=== PATIENT | female | born 1965 | race Caucasian/White ===

== ENCOUNTER 2017-02-07 07:58 | Emergency (ER) | payer SELFPAY ==
[~2017-02-07] VITALS: Ht 182.9 cm; Wt 92.9 kg
[~2017-02-07 07:58] MED LIST: CITA40TA12 PO; CLON1TAB3 PO; LEVO150T PO; LSN20 PO; ULT50X PO; VALA1TAB2 PO
[2017-02-07 08:03] VITALS: Ht 182.9 cm; Wt 92.9 kg
--- NOTE | 2017-02-07 08:07 | EMERGENCY ROOM VISIT NOTE ---
ED Visit Note First contact with patient: 08:03 CHIEF COMPLAINT: Toothache HISTORY OF PRESENT ILLNESS: This 51-year-old female patient presented to the emergency department [] with a progressive toothache for past []. The patient believes it is coming from []. The pain is now steady and severe and radiates to the face. The patient [] a dentist appointment set up []. They rate their pain a []/10 and the ibuprofen and Tylenol they have been taking has not relieved the pain. Denies facial swelling or fever. The patient denies any discharge from the mouth. REVIEW OF SYSTEMS: A 6 system review of systems was completed with positives and pertinent negatives listed in the HPI. ALLERGIES: [] MEDICATIONS: [] PMH: [] SOCIAL HISTORY: [] PHYSICAL EXAM: Vitals are noted on the nurse's note and reviewed by myself. Vital signs stable. Temperature []C orally. GENERAL: [], in no acute distress , nondiaphoretic, well-developed well-nourished. Mouth: The [] tooth is very carious and the gum is swollen and tender around it, without any discharge or signs of an abscess. The remainder of the pharynx and tonsils are without erythema, edema, or exudate. The airway is patent. There is no facial swelling , cervical or submandibular lymphadenopathy. The patient appears uncomfortable and in pain. The patient has overall [] dental hygiene. EARS: External auditory canals clear, tympanic membranes pearly andrade without erythema or effusion bilaterally. ED COURSE: [] DIAGNOSIS: Odontalgia DISCHARGE INSTRUCTIONS & TREATMENT: Percocet every 6 hours if needed for pain. Amoxicillin 500 mg t.i.d. x 10 days for infection. See a dentist as soon as possible for definitive care. Return sooner if shortness of breath, discharge, or change in vision and hearing occur. Problem List Medical Problems: (1) Anxiety Status: Chronic (2) Depression Status: Chronic (3) Herpes zoster Status: Chronic (4) HTN (hypertension) Status: Chronic (5) Hypothyroidism Status: Chronic (6) Mitral valve prolapse Status: Chronic (7) Mitral valve regurgitation Status: Chronic (8) Restless leg syndrome Status: Chronic Surgical Problems: (1) History of endometrial ablation Status: Resolved (2) History of tubal ligation Status: Resolved Social History Problems: (1) Tobacco use Status: Chronic Current/Historical Medications Scheduled Clindamycin Hcl (Cleocin), 300 MG PO TID Ibuprofen (Advil), 800 MG PO TID Levothyroxine Sodium (Synthroid), 150 MCG PO DAILY Lisinopril (Lisinopril), 20 MG PO DAILY Allergies Coded Allergies: No Known Allergies (Unverified , 08/11/12) Vital Signs Date Time Temp Pulse Resp B/P (MAP) Pulse Ox O2 Delivery O2 Flow Rate FiO2 02/07/17 08:03 36.6 82 18 182/119 99 Room Air Laboratory Results Test 02/07/17 08:19 Departure Information Referrals No Doctor, Assigned (PCP) Patient Instructions [facility]
[2017-02-07] MEDS ORDERED: CLIN150C PO (08:12)
[2017-02-07] MEDS ORDERED: IBUP-1050 PO (08:12)
[2017-02-07] MEDS ORDERED: FENTANYL CITRATE INJ 50 MCG/1 ML 2 ML VIAL IV STA (08:19)
[2017-02-07] MEDS ORDERED: ACETAMINOPHEN IV 100 ML IV STA (08:19)
[2017-02-07] MEDS ORDERED: SODIUM CHLORIDE 0.9% 1000ML 1,000 ML IV STA (08:19)
--- NOTE | 2017-02-07 08:36 | EMERGENCY ROOM VISIT NOTE ---
History First contact with patient: 08:03 Chief Complaint: DENTAL PAIN Stated Complaint: SWELLING ON R JAW Nursing Triage Summary: they started a root canal procedure on thursday. currently taking antibiotics. woke up this morning swelling is greater. "I am having problems swallowing now" History of Present Illness The patient is a 51 year old female who presents to the Emergency Room with complaints of right facial swelling and pain that started 2 days ago. Patient states that she had a dental infection that was evaluated by her dentist, on Thursday she started a root canal and placed antibiotics in her gums, then on Thursday she went back for a washout and completion of the root canal. On she began to complain of increased pain so she was placed on amoxicillin. Thursday she began to develop swelling and increasing pain, so her dentist switched her from amoxicillin to clindamycin, which the patient states she has been taking. She states last night that she was hardly able to sleep because of pain, and now she is having some difficulty swallowing due to pain and swelling. She denies any difficulty breathing or throat swelling, fevers or chills, chest pain, nausea or vomiting, rash. Review of Systems A complete 10 point review of systems was reviewed with the patient with pertinent positives and negatives as per history of present illness. All else were negative. Past Medical/Surgical History Medical Problems: (1) Anxiety (2) Depression (3) Herpes zoster (4) HTN (hypertension) (5) Hypothyroidism (6) Mitral valve prolapse (7) Mitral valve regurgitation (8) Restless leg syndrome Surgical Problems: (1) History of endometrial ablation (2) History of tubal ligation Social History Problems: (1) Tobacco use Family History No pertinent family history Social History Smoking Status: Current Every Day Smoker Marital Status: Occupation Status: employed Current/Historical Medications Scheduled Clindamycin Hcl (Cleocin), 300 MG PO TID Clindamycin Hcl (Cleocin), 1 CAP PO TID Ibuprofen (Advil), 800 MG PO TID Levothyroxine Sodium (Synthroid), 150 MCG PO DAILY Lisinopril (Lisinopril), 20 MG PO DAILY Scheduled PRN Oxycodone Ir (Roxicodone Ir), 5 MG PO Q4H PRN for Severe Pain Physical Exam Vital Signs Date Time Temp Pulse Resp B/P (MAP) Pulse Ox O2 Delivery O2 Flow Rate FiO2 02/07/17 12:38 36.6 65 20 155/81 99 02/07/17 12:36 65 20 155/81 99 Room Air 02/07/17 09:59 64 18 178/99 99 Room Air 02/07/17 08:03 36.6 82 18 182/119 99 Room Air Physical Exam CONSTITUTIONAL: No acute distress, but appears uncomfortable. Mildly dehydrated. Alert and oriented X 4 with normal affect. HEENT: Normocephalic, atraumatic. Pupils equal, round and reactive to light, EOMI. TMs normal. Pharynx normal. Tacky mucous membranes. Moderate right jaw swelling that extends into the right lips and right upper neck, exquisitely tender to palpation. No gingivitis, periapical abscess, or drainage noted within the mouth. No woody edema of the mouth floor. NECK: Supple, full active range of motion without discomfort. RESPIRATORY: Clear to auscultation bilaterally with no wheezing, crackles, rhonchi or stridor. Equal expansion bilaterally. CARDIOVASCULAR: Regular rate and rhythm with no murmurs, rubs or gallops. Normal peripheral perfusion. No edema. GASTROINTESTINAL: Soft, nontender, nondistended. Bowel sounds present in all quadrants. MUSCULOSKELETAL: Full range of motion of all joints without discomfort. INTEGUMENTARY: No rash or other significant dermatologic conditions noted. NEUROLOGIC: Cranial nerves II-XII grossly intact. No focal neurologic deficits noted. Medical Decision & Procedures ER Provider Diagnostic Interpretation: SOFT TISSUE NECK WITH CLINICAL HISTORY: 51 years-old Female presenting with right facial swelling, eval abscess, lance's, osteo. TECHNIQUE: Multidetector CT of the neck was performed after the administration of intravenous contrast. IV contrast: 100 mL of Optiray 320. A dose lowering technique was used consistent with the principles of ALARA (as low as reasonably achievable). COMPARISON: None. CT DOSE (mGy.cm): The estimated cumulative dose is 504.[address] face. FINDINGS: Cryogenics Engineer topogram: Unremarkable. The visualized portion of the paranasal sinuses and mastoid air cells clear. Nasopharynx, oropharynx, hypopharynx, larynx patent without evidence of suspicious nodular enhancement. Evaluation of the oral cavity is limited due to the presence of extensive amalgam resulting in streak artifact. Within the limitation, no periapical lucencies present to suggest periapical abscess or no osseous erosion of the mandible or maxilla. Mild infiltration overlies the anterior body of the right mandible. No focal fluid collection is appreciated along the mandibular cortex to suggest odontogenic abscess. Infiltration minimally extends to the submandibular region on the right ureter prominent asymmetric lymph nodes in the right segment tubular space. No pathologically enlarged lymph nodes in the neck. Infiltration of the fat subjacent to the platysma on the right extending along the right neck superficial to the sternocleidomastoid muscle. No infiltration in the superior mediastinum or prevertebral region. No focal fluid collection. Vessels patent. Mild degenerative change of the cervical spine. Lung apices clear. IMPRESSION: Infiltration superficial to the right anterior body of the mandible. No evidence of an odontogenic or periapical abscess. Inflammatory change extends inferiorly along the anterior neck superficial to the sternocleidomastoid. No vessel thrombosis or infiltration of the prevertebral region or superior mediastinum. This inflammation most likely arises from the buccal mucosa. Laboratory Results 02/07/17 08:40 Red Blood Count 4.23, Mean Corpuscular Volume 93.9, Mean Corpuscular Hemoglobin 33.6, Mean Corpuscular Hemoglobin Concent 35.8, Mean Platelet Volume 11.7, Neutrophils (%) (Auto) 65.5, Lymphocytes (%) (Auto) 19.3, Monocytes (%) (Auto) 9.7, Eosinophils (%) (Auto) 4.6, Basophils (%) (Auto) 0.6, Neutrophils # (Auto) 5.78, Lymphocytes # (Auto) 1.70, Monocytes # (Auto) 0.86, Eosinophils # (Auto) 0.41, Basophils # (Auto) 0.05 02/07/17 08:40 Test 02/07/17 08:40 White Blood Count 8.83 K/uL (4.8-10.8) Red Blood Count 4.23 M/uL (4.2-5.4) Hemoglobin 14.2 g/dL (12.0-16.0) Hematocrit 39.7 % (37-47) Mean Corpuscular Volume 93.9 fL (80-100) Mean Corpuscular Hemoglobin 33.6 pg (25-34) Mean Corpuscular Hemoglobin Concent 35.8 g/dl (32-36) Platelet Count 268 K/uL (130-400) Mean Platelet Volume 11.7 fL (7.4-10.4) Neutrophils (%) (Auto) 65.5 % Lymphocytes (%) (Auto) 19.3 % Monocytes (%) (Auto) 9.7 % Eosinophils (%) (Auto) 4.6 % Basophils (%) (Auto) 0.6 % Neutrophils # (Auto) 5.78 K/uL (1.4-6.5) Lymphocytes # (Auto) 1.70 K/uL (1.2-3.4) Monocytes # (Auto) 0.86 K/uL (0.11-0.59) Eosinophils # (Auto) 0.41 K/uL (0-0.5) Basophils # (Auto) 0.05 K/uL (0-0.2) RDW Standard Deviation 43.2 fL (36.4-46.3) RDW Coefficient of Variation 12.7 % (11.5-14.5) Immature Granulocyte % (Auto) 0.3 % Immature Granulocyte # (Auto) 0.03 K/uL (0.00-0.02) Erythrocyte Sedimentation Rate 19 mm/hr (0-21) Anion Gap 6.0 mmol/L (3-11) Est Creatinine Clear Calc Drug Dose 109.0 ml/min Estimated GFR () 101.2 Estimated GFR (Non- 87.3 BUN/Creatinine Ratio 11.6 (10-20) Calcium Level 8.7 mg/dl (8.5-10.1) C-Reactive Protein 1.23 mg/dl (0-0.29) Medications Administered Medications (Trade) Dose Ordered Sig/Heidy Route Start Time Stop Time Status Last Admin Dose Admin Fentanyl Citrate (Fentanyl Inj) 50 mcg NOW STAT IV 02/07/17 08:19 02/07/17 08:26 DC 02/07/17 08:49 50 MCG Acetaminophen 100 ml @ 400 mls/hr NOW STAT IV 02/07/17 08:19 02/07/17 08:33 DC 02/07/17 08:49 400 MLS/HR Sodium Chloride 1,000 ml @ 999 mls/hr Q1H1M STAT IV 02/07/17 08:19 02/07/17 09:19 DC 02/07/17 08:48 999 MLS/HR Hydromorphone HCl (Dilaudid Inj) 0.5 mg NOW STAT IV 02/07/17 09:11 02/07/17 09:13 DC 02/07/17 09:25 0.5 MG Ketorolac Tromethamine (Toradol Inj) 15 mg NOW STAT IV 02/07/17 10:20 02/07/17 10:21 DC 02/07/17 10:27 15 MG Clindamycin Phosphate 900 mg/ Dextrose 106 ml @ 106 mls/hr NOW ONCE IV 02/07/17 11:00 02/07/17 11:59 DC 02/07/17 11:24 106 MLS/HR Oxycodone HCl (Roxicodone Immediate Rel Tab) 5 mg NOW STAT PO 02/07/17 11:09 02/07/17 11:12 DC 02/07/17 11:25 5 MG Medical Decision CC: Patient presenting with complaint of right facial swelling and pain Interpretation of Labs: No leukocytosis, no anemia,electrolyte abnormalities, normal renal function, slightly elevated CRP with normal ESR. Differential Diagnosis: Includes, but not limited to cellulitis, abscess, periapical abscess, osteomyelitis, Lance's angina, among others. Medication Reconciliation: I attest that I have personally reviewed the patient' s current medication list. Vital signs review: I reviewed the patient's vital signs and interpret them as follows: T: Afebrile; BP: Hypertensive; HR: Within normal limits; RR: Within normal limits; Pulse Ox: Within normal limits on room air. Blood pressure screening: The patient was found to have an elevated blood pressure and was referred to their primary doctor for recheck and further treatment. Summary: Patient was evaluated at bedside, history of physical exam performed. Patient is alert and in no acute distress, but appears uncomfortable and in pain , resting in stretcher. Notable right facial/jaw swelling that extends in the submandibular area and upper neck area as well as the right upper and lower lips. There is no swelling of the tongue noted. Patent airway with no wheezing or stridor noted, patient is able to speak in full sentences and is able to swallow oral secretions. Patient is afebrile and nontoxic-appearing. Patient was placed on O2 sat monitor. Orders were placed at bedside for labs, IV fluids for hydration, IV morphine and Tylenol for pain, CT face and neck with IV contrast to evaluate for deep space abscess, osteomyelitis, Lance's Patient discussed with Dr. Sinclair, who agrees with my assessment and plan. Labs reviewed as above, no significant abnormalities. CT imaging shows right facial and jaw swelling consistent with cellulitis, no drainable abscess, no evidence of Lance's angina. Patient reassessed multiple times throughout ED stay, she has improved pain after IV and oral agents, she is tolerating food, and her vitals have remained stable. Patient was updated on all results and plan for discharge home. She was instructed to keep her scheduled follow-up appointment on Thursday with her oral surgeon. She was also encouraged to follow up with her PCP regarding her elevated blood pressure. Patient was given strict return precautions should her symptoms worsen in any way, she verbalized understanding. Patient was discharged home in stable condition and ambulatory. Impression Primary Impression: Dental infection Additional Impression: Jaw swelling Departure Information Dispostion Home / Self-Care Condition GOOD Prescriptions Clindamycin Hcl (CLEOCIN) 300 Mg Cap 1 CAP PO TID for 7 Days, #21 CAP Prov: Rachell Ramírez CRNP 02/07/17 Oxycodone Ir (Roxicodone Ir) 5 Mg Tab 5 MG PO Q4H Y for Severe Pain for 3 Days, #18 TAB Prov: Rachell Ramírez CRNP 02/07/17 Referrals No Doctor, Assigned (PCP) Patient Instructions ED Cellulitis Facial, ED Tooth Pain, Counts Include [facility] Additional Instructions You have been treated in the Emergency Department for Dental Pain. You have received pain medicine in the emergency department which impairs your ability to operate a vehicle. It is illegal for you to drive after receiving these medicines. You have been prescribed oxycodone to be used for pain control. This is a narcotic medication. You cannot drive or consume alcohol while on this medicine. This medicine should only be used for pain that cannot be controlled with ecra-mpj-iervplv pain medicines. You were prescribed clindamycin, take 450 mg (150 mg tablet + 300 mg tablet) to be taken 3 times a day for 7 days. This is an antibiotic. All antibiotics have the potential to cause diarrhea. You may take an rdqy-[id number]-urupcrk probiotic to help prevent diarrhea. Stop this medication and contact a medical provider if you were to develop any significant adverse side effects including: wheezing, shortness of breath, passing out, vomiting, or a diffuse rash. Always take antibiotics as directed and COMPLETE the ENTIRE course regardless of the improvement of your symptoms. For pain control, you can use the following tavr-jjl-bekcbkh medicines (if >12 yo): - Extra strength (500mg/tab) Tylenol (acetaminophen) 1-2 tabs every 6-8 hours as needed. Do not exceed 6 tablets in a 24 hour period. Avoid taking more than 3 grams (3000 mg) of Tylenol per day. This includes any other sources of acetaminophen you may take on a regular basis. - Regular strength (200 mg/tab) Advil (ibuprofen) 3 tabs every 6-8 hours as needed. Do not exceed a dose of 3200 mg per day. Refrain from smoking cigarettes or using chewing tobacco until you have been evaluated by your dentist. Keeping beverages lukewarm and consuming soft foods can decrease your pain. Warm compresses over the affected area 3-4 times a day for 30 minutes at a time may offer some relief. You MUST seek evaluation of your dental pain by your dentist following your visit to the Emergency Department. Keep your planned follow-up for Thursday. The Emergency Department is not capable of treating dental issues long-term. You should call your dentist as soon as possible to make an appointment for evaluation of your dental pain. Return to the emergency department if you develop the following symptoms despite treatment course outlined above: fevers, severe intractable pain that is not manageable with pain medication, increased redness, swelling, pus drainage or bleeding inside the mouth, difficulty breathing, wheezing, muffled voice, if you are unable to swallow, or any other worsening of your symptoms. Problem Qualifiers
[2017-02-07] MEDS ORDERED: OPTIRAY 320 IV PRN (08:45)
[2017-02-07 08:59] LABS: BASO % 0.6 %; BASO ABS # 0.05 K/uL (0-0.2); COMPLETE YES; EOS % 4.6 %; HEMATOCRIT 39.7 % (37-47); IG% 0.3 %; LYMPH % 19.3 %; MEAN CELL VOLUME 93.9 fL (80-100); MEAN CORPUSCULAR HEMOGLOBIN 33.6 pg (25-34); MEAN CORPUSCULAR HGB CONC 35.8 g/dl (32-36); MEAN PLATELET VOLUME 11.7 fL (7.4-10.4); MONO % 9.7 %; NEUT % 65.5 %; PLATELET COUNT 268 K/uL (130-400); RED BLOOD COUNT 4.23 M/uL (4.2-5.4); WHITE BLOOD COUNT 8.83 K/uL (4.8-10.8)
[2017-02-07] MEDS ORDERED: HYDROmorphone INJ 0.5 MG/0.5 ML SYR IV STA (09:11)
[2017-02-07 09:25] LABS: BUN/CREATININE RATIO 11.6 (10-20); C-REACTIVE PROTEIN 1.23 mg/dl (0-0.29); CALCIUM 8.7 mg/dl (8.5-10.1); CREATININE 0.79 mg/dl (0.60-1.20); POTASSIUM 3.6 mmol/L (3.5-5.1)
--- NOTE | 2017-02-07 10:05 | DIAGNOSTIC IMAGING REPORT ---
SOFT TISSUE NECK WITH CLINICAL HISTORY: 51 years-old Female presenting with right facial swelling, eval abscess, gary's, osteo. TECHNIQUE: Multidetector CT of the neck was performed after the administration of intravenous contrast. IV contrast: 100 mL of Optiray 320. A dose lowering technique was used consistent with the principles of ALARA (as low as reasonably achievable). COMPARISON: None. CT DOSE (mGy.cm): The estimated cumulative dose is 504.[address] face. FINDINGS: Personal Shopper topogram: Unremarkable. The visualized portion of the paranasal sinuses and mastoid air cells clear. Nasopharynx, oropharynx, hypopharynx, larynx patent without evidence of suspicious nodular enhancement. Evaluation of the oral cavity is limited due to the presence of extensive amalgam resulting in streak artifact. Within the limitation, no periapical lucencies present to suggest periapical abscess or no osseous erosion of the mandible or maxilla. Mild infiltration overlies the anterior body of the right mandible. No focal fluid collection is appreciated along the mandibular cortex to suggest odontogenic abscess. Infiltration minimally extends to the submandibular region on the right ureter prominent asymmetric lymph nodes in the right segment tubular space. No pathologically enlarged lymph nodes in the neck. Infiltration of the fat subjacent to the platysma on the right extending along the right neck superficial to the sternocleidomastoid muscle. No infiltration in the superior mediastinum or prevertebral region. No focal fluid collection. Vessels patent. Mild degenerative change of the cervical spine. Lung apices clear. IMPRESSION: Infiltration superficial to the right anterior body of the mandible. No evidence of an odontogenic or periapical abscess. Inflammatory change extends inferiorly along the anterior neck superficial to the sternocleidomastoid. No vessel thrombosis or infiltration of the prevertebral region or superior mediastinum. This inflammation most likely arises from the buccal mucosa. Electronically signed by: Raz Suh M.D. 02/07/2017 10:03 AM Dictated Date/Time: 02/07/2017 9:57 AM
--- NOTE | 2017-02-07 10:08 | DIAGNOSTIC IMAGING REPORT ---
FACIAL-MAXILLOFACIAL WITH CLINICAL HISTORY: 51 years-old Female presenting with right facial swelling, eval abscess, gary's, osteo. TECHNIQUE: Multidetector CT of the face was performed after the administration of intravenous contrast. IV contrast: 100 mL of Optiray 320. A dose lowering technique was used consistent with the principles of ALARA (as low as reasonably achievable). COMPARISON: None. CT DOSE (mGy.cm): The estimated cumulative dose is 504.34 mGy.cm. FINDINGS: Paper Tester topogram: Unremarkable. Limited intracranial evaluation within normal limits with grossly patent vasculature. Paranasal sinuses and mastoid air cells clear. Infiltration in the superficial soft tissue overlying the anterior right body of the mandible. No associated periapical lucency or odontogenic abscess. Subtle periosteal reaction noted along the buccal aspect of the right body of the mandible. No eliud osseous erosion. Inflammation extends inferiorly better visualized on CT of the neck. Several asymmetrically enlarged submandibular lymph nodes noted. No infiltration or displacement of the peripharyngeal fat. IMPRESSION: Inflammatory change along the buccal gross overlying the right anterior body of the mandible. Associated periosteal reaction of the mandible could be reactive to the inflammation or raise concern for early osteomyelitis. No eliud osseous erosion. No odontogenic or periapical abscess. The inferior extent of inflammation is better demonstrated on CT neck. Electronically signed by: Raz Suh M.D. 02/07/2017 10:07 AM Dictated Date/Time: 02/07/2017 10:03 AM
[2017-02-07] MEDS ORDERED: KETOROLAC TROMETHAMINE 30 MG/ML VIAL IV STA (10:20)
[2017-02-07] MEDS ORDERED: CLINDAMYCIN 600 MG/54 ML D5W IV ONE (10:30)
[2017-02-07] MEDS ORDERED: CLINDAMYCIN IV 900 MG in DEXTROSE 5% ADD-VANTAGE 100ML 100 ML IV ONE (11:00)
[2017-02-07] MEDS ORDERED: OXYCODONE HCL IR 5 MG TAB (IMMEDIATE RELEASE) PO STA (11:09)
[2017-02-07] MEDS ORDERED: CLIN300C2 PO (11:33)
[2017-02-07] MEDS ORDERED: OXYC1TAB3 PO (11:33)
[2017-02-07 12:38] VITALS: BP 155/81; PULSE 65; TEMP 36.6; O2SAT 99
== END 2017-02-07 12:38 | disposition home or self-care (01) ==
LOC: C.EDB 07:59 → C.EDA 12:38
DX: K04.7 Periapical abscess without sinus (principal); R22.0 Localized swelling, mass and lump, head; F41.9 Anxiety disorder, unspecified; F32.9 Major depressive disorder, single episode, unspecified; I10 Essential (primary) hypertension; E03.9 Hypothyroidism, unspecified; I34.1 Nonrheumatic mitral (valve) prolapse; I34.0 Nonrheumatic mitral (valve) insufficiency; G25.81 Restless legs syndrome; F17.210 Nicotine dependence, cigarettes, uncomplicated; Z79.899 Other long term (current) drug therapy